=== PATIENT | female | born 1995 | race Caucasian/White ===

== ENCOUNTER 2016-09-17 20:39 | Emergency (ER) | payer OTHER ==
[~2016-09-17] VITALS: Ht 165.1 cm; Wt 52.3 kg
[~2016-09-17 20:39] MED LIST: BENTYL10 MG PO; EPIPEN ADU0.3 MG/0.3 IM; MACROBID100 MG PO; MARLISSA1 EACH PO; NAPROXEN500 MG PO; NOHOMEMEDS; OMEPRAZOLE40 M1 PO; PEPCID20 MG PO; PORTIA 28 DA1 TABLET PO; PREDNISONE20 MG PO; ZOFRAN ODT4 MG PO
[2016-09-17 21:16] LABS: HEMATOCRIT 40.7 % (36.0-46.0); MCH 31.3 PG (29.0-34.0); MCHC 33.7 G/DL (30.0-36.0); MCV 92.9 FL (83-99); MEAN PLAT.VOLUME 10.8 uM^3 (9.5-12.4); PLATELET COUNT 283 K/uL (156-360); RBC DIS.WIDTH-CV 12.5 % (11.8-14.6); RBC DIS.WIDTH-SD 42.6 % (39-53); RED BLOOD COUNT 4.38 M/uL (3.80-5.20); WHITE BLOOD COUNT 6.9 K/uL (4.1-10.2)
[2016-09-17 21:28] LABS: CHLORIDE 106 mEq/L (99-109); D-DIMER ELISA 0.22 mg/L FEU (< 0.57); POTASSIUM 3.7 mEq/L (3.7-5.4); SODIUM 142 mEq/L (136-147)
[2016-09-17 21:30] LABS: GLUCOSE 96 mg/dL (70-99)
[2016-09-17 21:31] LABS: ANION GAP 11 MEQ/L (2-14)
[2016-09-17 21:32] LABS: TOTAL BILIRUBIN 0.2 mg/dL (0.0-1.0)
[2016-09-17 21:33] LABS: ALKALINE PHOSPHATASE 62 IU/L (3-129)
[2016-09-17 21:34] LABS: GFR ESTIMATE (CALCULATED) > 59 mL/min/
[2016-09-17 21:35] LABS: UREA NITROGEN (BUN) 15 mg/dL (9-23)
[2016-09-17 21:43] LABS: QUANTITATIVE HCG < 4.0 MIU/ML; TROP-I INTERPRETATION NEGATIVE; TROPONIN-I < 0.01 ng/mL (0.0-0.30)
[2016-09-17] MEDS ORDERED: INDOCIN50 MG PO (21:56)
[2016-09-17 22:11] VITALS: BP 120/81
== END 2016-09-17 22:15 | disposition home or self-care (01) ==
LOC: EME 20:39
PROVIDERS: Physician Assistant
DX: R09.1 Pleurisy (principal); R07.9 Chest pain, unspecified; F17.200 Nicotine dependence, unspecified, uncomplicated; Z91.040 Latex allergy status; Z91.041 Radiographic dye allergy status; Z88.0 Allergy status to penicillin; Z88.6 Allergy status to analgesic agent
CPT/HCPCS: 71020; 80053; 84484; 84702; 85027; 85379; 93005; 99281; 99284; J1885

== ENCOUNTER 2016-10-15 18:50 | Emergency (ER) | payer OTHER ==
[~2016-10-15] VITALS: Ht 165.1 cm; Wt 56.8 kg
[~2016-10-15 18:50] MED LIST changes: +INDOCIN50 MG PO
[2016-10-15] MEDS ORDERED: MOTRIN800 MG PO (20:56)
[2016-10-15] MEDS ORDERED: ULTRACET1 TABLET PO (20:57)
[2016-10-15 21:15] VITALS: BP 131/85
== END 2016-10-15 21:16 | disposition home or self-care (01) ==
LOC: EME 18:50
DX: M77.12 Lateral epicondylitis, left elbow (principal); S50.02XA Contusion of left elbow, initial encounter; Y99.0 Civilian activity done for income or pay; W23.1XXA Caught, crushed, jammed, or pinched between stationary objects, initial encounter; Y93.89 Activity, other specified; Y92.238 Other place in hospital as the place of occurrence of the external cause; Z91.040 Latex allergy status; Z88.1 Allergy status to other antibiotic agents; Z88.0 Allergy status to penicillin; F17.200 Nicotine dependence, unspecified, uncomplicated
CPT/HCPCS: 73080; 99281; 99284

== ENCOUNTER → 2017-02-27 | Outpatient (CLI) | payer OTHER ==
[~2017-02-27] MED LIST changes: +AZITHROMYCIN250 MG PO; +MOTRIN800 MG PO; +ULTRACET1 TABLET PO
== END | disposition home or self-care (01) ==
LOC: RES 02-25 11:00
DX: J20.9 Acute bronchitis, unspecified (principal)
CPT/HCPCS: 94060; 94726; 94729

== ENCOUNTER 2017-02-28 18:58 | Emergency (ER) | payer OTHER ==
[~2017-02-28] VITALS: Ht 165.1 cm; Wt 53.1 kg
[~2017-02-28 18:58] MED LIST changes: -AZITHROMYCIN250 MG PO
[2017-02-28 20:07] VITALS: BP 111/75
[2017-02-28] MEDS ORDERED: PREDNISONE20 MG PO (20:10)
[2017-02-28] MEDS ORDERED: AZITHROMYCIN250 MG PO (20:10)
== END 2017-02-28 20:11 | disposition home or self-care (01) ==
LOC: EME 18:58
DX: S60.221A Contusion of right hand, initial encounter (principal); W23.0XXA Caught, crushed, jammed, or pinched between moving objects, initial encounter; Y93.F9 Activity, other caregiving; Y92.239 Unspecified place in hospital as the place of occurrence of the external cause; Y99.0 Civilian activity done for income or pay; Z87.828 Personal history of other (healed) physical injury and trauma; F17.200 Nicotine dependence, unspecified, uncomplicated
CPT/HCPCS: 73130; 99281; 99283

== ENCOUNTER 2017-05-25 13:55 | Emergency (ER) | payer OTHER ==
[~2017-05-25] VITALS: Ht 165.1 cm; Wt 53.2 kg
[~2017-05-25 13:55] MED LIST changes: +AZITHROMYCIN250 MG PO
[2017-05-25 16:27] LABS: EOSINOPHIL (%) 0.2 % (0-5); HEMATOCRIT 38.5 % (36.0-46.0); IMMATURE GRANULOCYTE (%) 0.3 % (0.0-0.7); INSTRUMENT ABS NEUTROPHIL CT 4.7 K/uL; LYMPHOCYTE COUNT 1.1 K/uL (1.0-2.8); MCH 31.5 PG (29.0-34.0); MCV 92.5 FL (83-99); MEAN PLAT.VOLUME 10.6 uM^3 (9.5-12.4); MONOCYTE (%) 5.4 % (3-12); MONOCYTE COUNT 0.3 K/uL (0-0.8); NEUTROPHIL (%) 76.5 % (45-76); NEUTROPHIL COUNT 4.7 K/uL (1.8-6.4); PLATELET COUNT 193 K/uL (156-360); RBC DIS.WIDTH-CV 12.2 % (11.8-14.6); RBC DIS.WIDTH-SD 42.3 % (39-53); RED BLOOD COUNT 4.16 M/uL (3.80-5.20); WHITE BLOOD COUNT 6.1 K/uL (4.1-10.2)
[2017-05-25 16:49] LABS: ANION GAP 8 MEQ/L (2-14); CHLORIDE 109 MEQ/L (99-109); POTASSIUM 3.8 MEQ/L (3.7-5.4); SAMPLE HEMOLYSIS CHECK 0; SAMPLE ICTERIC CHECK 0; SAMPLE LIPEMIA CHECK 0; SODIUM 141 MEQ/L (136-147)
[2017-05-25 16:55] LABS: GFR ESTIMATE (CALCULATED) > 59 mL/min/; GLUCOSE 99 mg/dL (70-99); UREA NITROGEN (BUN) 10 mg/dL (9-23)
[2017-05-25 16:58] LABS: QUANTITATIVE HCG < 4.0 MIU/ML
[2017-05-25] MEDS ORDERED: PREDNISONE20 MG PO (18:37)
[2017-05-25] MEDS ORDERED: NORCO 5/3251 TABLET PO (18:37)
[2017-05-25 19:01] VITALS: BP 134/93
== END 2017-05-25 19:02 | disposition home or self-care (01) ==
LOC: EME 13:55
PROVIDERS: Emergency Medicine
DX: J20.8 Acute bronchitis due to other specified organisms (principal); J45.909 Unspecified asthma, uncomplicated; F17.200 Nicotine dependence, unspecified, uncomplicated; Z79.3 Long term (current) use of hormonal contraceptives; M54.6 Pain in thoracic spine; R00.0 Tachycardia, unspecified
CPT/HCPCS: 71020; 71275; 80048; 84702; 85025; 93005; J1200; J1885; J2930; J3010; J7030

== ENCOUNTER 2017-06-04 20:15 | Emergency (ER) | payer OTHER ==
[~2017-06-04] VITALS: Ht 152.4 cm; Wt 52.9 kg
[~2017-06-04 20:15] MED LIST changes: +NORCO 5/3251 TABLET PO
[2017-06-04 21:21] LABS: BASOPHIL (%) 0.1 % (0-1); EOSINOPHIL (%) 0.1 % (0-5); HEMATOCRIT 41.2 % (36.0-46.0); HEMOGLOBIN 14.2 G/DL (11.9-15.5); IMMATURE GRANULOCYTE (%) 0.5 % (0.0-0.7); LYMPHOCYTE (%) 9.6 % (15-42); LYMPHOCYTE COUNT 1.7 K/uL (1.0-2.8); MCH 31.3 PG (29.0-34.0); MCHC 34.5 G/DL (30.0-36.0); MCV 90.9 FL (83-99); MONOCYTE (%) 5.5 % (3-12); NEUTROPHIL (%) 84.2 % (45-76); NEUTROPHIL COUNT 14.7 K/uL (1.8-6.4); RBC DIS.WIDTH-CV 12.5 % (11.8-14.6); RBC DIS.WIDTH-SD 41.5 % (39-53); RED BLOOD COUNT 4.53 M/uL (3.80-5.20); WHITE BLOOD COUNT 17.4 K/uL (4.1-10.2)
[2017-06-04 21:29] LABS: PLATELET COUNT 302 K/uL (156-360)
[2017-06-04 21:31] LABS: CHLORIDE 107 mEq/L (99-109); POTASSIUM 3.9 mEq/L (3.7-5.4); SODIUM 139 mEq/L (136-147)
[2017-06-04 21:32] LABS: GLUCOSE 111 mg/dL (70-99)
[2017-06-04 21:36] LABS: CREATININE 0.9 mg/dL (0.6-1.3); GFR ESTIMATE (CALCULATED) > 59 mL/min/
[2017-06-04 21:37] LABS: UREA NITROGEN (BUN) 13 mg/dL (9-23)
[2017-06-04] MEDS ORDERED: TESSALON PERLE100 MG PO (23:16)
[2017-06-05] MEDS ORDERED: MUCINEX D ER T1 EACH PO (00:32)
[2017-06-05 01:01] VITALS: BP 131/88
== END 2017-06-05 01:02 | disposition home or self-care (01) ==
LOC: EME 20:15
PROVIDERS: Physician Assistant
DX: J06.9 Acute upper respiratory infection, unspecified (principal); J40 Bronchitis, not specified as acute or chronic; F17.200 Nicotine dependence, unspecified, uncomplicated; Z88.5 Allergy status to narcotic agent; Z88.0 Allergy status to penicillin
CPT/HCPCS: 71020; 80048; 83605; 85025; 87502; 94640; 99281; 99285; J2930; J7030